=== PATIENT | male | born 1980 | race Two or more races ===

== ENCOUNTER 2024-07-02 16:45 | Emergency (ER) | payer MEDICAID, SELFPAY ==
[2024-07-02 16:56] VITALS: BP 160/91; PULSE 83; RESP 18; TEMP 37; O2SAT 99; BMI 28.7
--- NOTE | 2024-07-02 17:08 | XR_ITS ---
Examination: CT abdomen and pelvis without contrast. Coronal 3-D reconstructions. Sagittal 2-D reconstructions. Date and time of exam:July 02, 2024 1720 hrs. Indications: Nausea vomiting and minimal bilateral pain onset today CTDI: vol (mGy): 8.29 DLP: (mGycm): 464 Technique: Axial images of the abdomen have been obtained, 3 mm slice thickness Intravenous contrast material has not been administered. Low dose protocols were performed. One or more of the following dose reduction techniques were used; automated exposure control, adjustment of the mA and/or KV according to patient size, use of iterative reconstruction technique. Findings: No focal liver or splenic lesion No gallstones No pancreatic edema No renal or ureteral calculi, no hydronephrosis Aorta normal size Normal appendix No bowel obstruction or diverticulitis Urinary bladder intact No prostatomegaly The osseous structures are intact Impression: No renal or ureteral calculi, no hydronephrosis No CT findings of appendicitis bowel obstruction or diverticulitis Consider hepatobiliary sonography follow-up
--- NOTE | 2024-07-02 17:09 | PD.EDRME ---
Rapid Medical Screening Exam RME Arrival date/time: 07/02/24 16:45 43-year-old male presents emergency department complaints of abdominal pain Chief Complaint: Abdominal Pain Time Seen by Provider: 07/02/24 16:49 Vital signs: Vital Signs Temperature 98.6 F 07/02/24 16:56 Pulse Rate 83 07/02/24 16:56 Respiratory Rate 18 07/02/24 16:56 Blood Pressure 160/91 H 07/02/24 16:56 Pulse Oximetry (%) 99 07/02/24 16:56 Oxygen Delivery Method Room Air 07/02/24 16:56
[2024-07-02] MEDS: METOCLOPRAMIDE INJ 5 MG/ML VIAL 2 ML 10 MG IM (17:27)
[2024-07-02 17:40] LABS: Basophils % (Auto) 0 % (0-2.5); Eosinophils # (Auto) 0.2 Thou/mm3 (0.0-0.5); Eosinophils % (Auto) 1 % (0-10); Hematocrit 49.3 % (41.0-53.0); Hemoglobin 16.4 g/dL (13.5-16.0); Immature Granulocytes % (Auto) 0 % (0-0); Immature Granulocytes Auto 0.03 Thou/mm3 (0.00-0.00); Lymphocytes # (Auto) 1.1 Thou/mm3 (1.0-4.8); Lymphocytes % (Auto) 8 % (10-50); Mean Corpuscular HGB Conc 33.3 g/dl (31.0-37.0); Mean Corpuscular Hemoglobin 27.7 pg (25.0-35.0); Mean Corpuscular Volume 83 fL (80-100); Monocytes # (Auto) 0.8 Thou/mm3 (0.0-0.8); Monocytes % (Auto) 6 % (0-12); Neutrophils # (Auto) 11.5 Thou/mm3 (1.8-7.7); Neutrophils % (Auto) 84 % (37-80); Nucleated Red Blood Cell % 0 /100 WBC (0); Platelet Count 361 Thou/mm3 (140-440); RDW Standard Deviation 41.2 fL (35.1-43.9); Red Blood Count 5.92 Miln/mm3 (4.50-5.90); White Blood Count 13.6 Thou/mm3 (3.8-10.6)
[2024-07-02 17:52] LABS: Alanine Aminotransferase 18 U/L (10-49); Albumin, Serum 4.6 gm/dL (3.5-5.0); Albumin/Globulin Ratio 1.5 (1.2-2.2); Alkaline Phosphatase 114 U/L (46-116); Anion Gap 6 (7-16); Aspartate Amino Transferase 17 U/L (0-34); BUN/Creatinine Ratio 17 Ratio (12-20); Bilirubin,Total 1.3 mg/dL (0.3-1.2); Blood Urea Nitrogen 17 mg/dL (9-23); Calcium 9.4 mg/dL (8.3-10.6); Calcium (Corrected) 9.4 mg/dL (8.5-10.1); Carbon Dioxide 27.6 mMol/L (20.0-31.0); Chloride 106 mMol/L (98-107); Estimated Creatinine Clearance 110.1 mL/min (>60); Glucose 101 mg/dL (74-106); Lipase 42 U/L (12-53); Osmolality,Calculated 280 (275-295); Potassium 4.2 mMol/L (3.4-5.1); Sodium 140 mMol/L (136-145); Total Protein 7.6 gm/dL (5.7-8.2); eGFR > 60 See Note
--- NOTE | 2024-07-02 19:51 | PC.NURSE ---
no answer in lobby when called for ultrasound
--- NOTE | 2024-07-02 20:14 | PC.NURSE ---
CALLED PT IN ER LOBBY AND OUTSIDE OF ER AND NO ANSWER AT THIS TIME.
--- NOTE | 2024-07-02 20:41 | PC.NURSE ---
CALLED PT IN ER LOBBY AND OUTSIDE OF ER AND NO ANSWER AT THIS TIME
== END 2024-07-02 20:41 | disposition left against medical advice (07) ==
PROVIDERS: Nurse Practitioner Primary Care; Emergency Provider Emergency Medicine
DX: R10.9 Unspecified abdominal pain (principal); Z53.29 Procedure and treatment not carried out because of patient's decision for other reasons
CPT/HCPCS: 36415; 74176; 80053; 80307; 81001; 83690; 85025; 96372; 99281; J2765